=== PATIENT | male | born 1970 | race Caucasian/White ===

== ENCOUNTER 2025-01-21 16:38 | Emergency (ER) | payer BC, SELFPAY ==
[2025-01-21 16:43] VITALS: BP 187/101
--- NOTE | 2025-01-21 17:58 | ED.GENMED ---
History of Present Illness
General
Chief Complaint: DVT/Possible Blood Clot
Source: patient
Exam Limitations: none
Time Seen by Provider: 01/21/25 17:49
History of Present Illness
History of Present Illness:
Patient with 3 to 4 days of left leg swelling and redness. Discussed with his friend who would mention that his friend's father of a blood clot. This prompted ER evaluation. Denies fever chills chest pain shortness of breath. Was also noted
a slight rash to both ankles and feet over the last month. No other unusual rash. Patient does smoke. 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
Past History
Social History
Tobacco: Smoker
Review of Systems
Review of Systems
All Other Systems: Not applicable
Constitutional: Denies fever or chills
Respiratory: Reports no symptoms
Cardiac: Reports no symptoms
Phy Exam
Physical Exam
Physical Exam:
GENERAL: Alert and oriented in no apparent distress. Ambulating the room in no distress
CARDIAC: Regular rate and rhythm
LUNGS: No respiratory distress
NEUROLOGICAL: Alert and oriented , grossly non-focal
SKIN: Warm and dry, slight erythematous hue to the left lower leg from the mid calf down. Area of superficial varicosities anterior over the tibia that appear old. Some mild petechial like appearance to both lower extremities and a stocking-glove
distribution of the ankle and feet. However none elsewhere mild swelling to the left lower leg mostly posterior distal calf near the Achilles. Achilles is nontender
PSYCH: Normal and appropriate interaction.
Course
Orders/Labs/Results
Orders:
Orders
01/21/25 16:50
Legs, left US [US Periph Venous LOWER Ext LT] Urgent
Comment:
Reason For Exam: left calf pain, lower leg redness
01/21/25 18:31
Basic Metabolic Panel Urgent
Complete Blood Count/With Diff Urgent
01/21/25 20:18
Doxycycline [Vibramycin] 100 mg PO NOW STA
Abnormal Lab Results
01/21/25
18:31
MPV 11.5 H fL
(7.4-10.4)
Absolute Monos (auto) 0.8 H 10^3/uL
(0.1-0.6)
Monocytes % 9.4 H %
(1.7-9.3)
01/21/25 18:31
01/21/25 18:31
Vital Signs
Initial and Last Documented VS:
Initial Vital Signs
Temp Pulse Resp BP Pulse Ox
98.5 F 99 18 187/101 97
01/21/25 16:43 01/21/25 16:43 01/21/25 16:43 01/21/25 16:43 01/21/25 16:43
Last Documented Vital Signs
Temp Pulse Resp BP Pulse Ox
98.5 F 86 20 157/91 99
01/21/25 16:43 01/21/25 19:45 01/21/25 19:45 01/21/25 19:45 01/21/25 19:45
MDM/Problems Addressed
Differential Diagnosis Includes:
DVT versus mild cellulitis. Clinically nontoxic. Highly doubt PE. The faint rash he describes as his lower extremities bilaterally are not generalized. Will check a platelet count and CBC.
*Radiology
Radiology exam reviewed: radiology read reviewed (Negative ultrasound)
*Pulse Oximetry
SaO2: 97
Oxygen Mode of Delivery: Room air
Patient hypoxic: no
*Critical Care Note
Total Time (30-74mins, 75-104mins- exclusive of procedures): Not Applicable
Update Note
Update Note:
Labs are stable. Ultrasound negative. Most suspicious at this time for a local cellulitis possibly secondary to a superficial thrombophlebitis inflammation. Ultrasound negative for DVT. Patient without chest pain or shortness of breath. Labs
are stable. Doxycycline and follow-up.
ED Attending Note
-
Portions of this chart may have been created with voice recognition software.� Occasional wrong word or��sound alike� substitutions may have occurred due to the inherent limitations of voice recognition software.
Discharge Plan
Departure
Patient Disposition: Home (Routine Discharge)
Date of Disposition: 01/21/25
Time of Disposition: 20:19
Patient with high blood pressure during this ER visit?: Yes
Discharge Problem:
Cellulitis left lower extremity/calf nixon, Superficial varicosities
Instructions: Varicose Veins (DC), Cellulitis (Skin Infection), Adult (DC), BLOOD PRESSURE
Prescriptions:
New
doxycycline hyclate 100 mg capsule
100 mg PO BID 10 Days Qty: 20 0RF
Referrals:
UNKNOWN - PT DOES,NOT KNOW [Family Provider]
Activity Restrictions/Additional Instructions:
Repeat ultrasound in 7 to 10 days if not improving
Follow-up closely with your primary physician
The prescription was sent to your pharmacy
Interventions
Interventions:
*Risk Screen - Suicide Last Done: 01/21/25 16:43
*General Assessment Last Done: 01/21/25 16:43
*Neglect/Abuse Screening Last Done: 01/21/25 16:43
*ED- Fall Risk Assessment Last Done: 01/21/25 20:19
*ED COVID-19 Vaccine History Last Done: 01/21/25 20:19
*Nursing Disposition Last Done: 01/21/25 20:19
ED- Cardiac Assessment Last Done: 01/21/25 18:45
ED- Pulmonary Assessment Last Done: 01/21/25 18:45
ED-Peripheral Vascular Assessment Last Done: 01/21/25 18:45
ED-Skin Assessment Last Done: 01/21/25 18:45
Discharge Date and Time
Discharge Date/Time: 01/21/25 20:27
Print Language: [id number]
[2025-01-21 18:44] LABS: Hematocrit 45.3 % (39.0-52.0); Hemoglobin 15.5 g/dL (13.0-18.0); Mean Corp Hgb Conc. 34.2 g/dL (33.0-37.0); Mean Corpuscular Volume 87.8 fL (80.0-94.0); Nucleated Red Blood Cells % 0 % (-); Platelet Count 193 10^3/uL (130-400); Red Cell Dist. Width 12.2 % (11.5-14.5)
[2025-01-21 18:59] LABS: Blood Urea Nitrogen 19 mg/dl (9-20); Calcium 9.8 mg/dl (8.4-10.2); Carbon Dioxide 27 mmol/L (22-30); Chloride 107 mmol/L (98-107); Glucose 91 mg/dl (70-99); Potassium 4.6 mmol/L (3.5-5.1); Sodium 139 mmol/L (135-145); eGFR > 60.00
[2025-01-21 19:45] VITALS: BP 157/91
[2025-01-21] MEDS: VIBRAMYCIN 100 MG PO (20:24)
== END 2025-01-21 20:27 | disposition home or self-care (01) ==
LOC: EMR 16:38
PROVIDERS: EMERGENCY PHYSICIAN Emergency Medicine
DX: L03.116 Cellulitis of left lower limb (principal); I83.812 Varicose veins of left lower extremity with pain; M79.662 Pain in left lower leg; R03.0 Elevated blood-pressure reading, without diagnosis of hypertension; F17.200 Nicotine dependence, unspecified, uncomplicated
CPT/HCPCS: 99284; 80048; 85025; 93971

== ENCOUNTER 2025-04-26 23:28 | Emergency (ER) | payer OTHER, SELFPAY ==
[2025-04-26 23:36] VITALS: BP 172/110
[2025-04-27 00:11] VITALS: BP 122/79
[2025-04-27 00:56] LABS: Hematocrit 46.3 % (39.0-52.0); Hemoglobin 15.9 g/dL (13.0-18.0); Mean Corp Hgb Conc. 34.3 g/dL (33.0-37.0); Mean Corpuscular Volume 88.0 fL (80.0-94.0); Nucleated Red Blood Cells % 0 % (-); Platelet Count 185 10^3/uL (130-400); Red Cell Dist. Width 11.8 % (11.5-14.5)
[2025-04-27 01:00] VITALS: BP 137/69
[2025-04-27 01:29] LABS: ALT (SGPT) 34 U/L (0-50); AST (SGOT) 25 U/L (17-59); Albumin 4.1 g/dl (3.5-5.0); Alkaline Phosphatase 62 U/L (38-126); Blood Urea Nitrogen 15 mg/dl (9-20); Calcium 8.4 mg/dl (8.4-10.2); Carbon Dioxide 22 mmol/L (22-30); Chloride 107 mmol/L (98-107); Glucose 93 mg/dl (70-99); Potassium 3.7 mmol/L (3.5-5.1); Sodium 138 mmol/L (135-145); Total Protein 6.4 g/dl (6.3-8.2); eGFR > 60.00
[2025-04-27 01:40] LABS: Troponin I < 0.012 ng/ml
[2025-04-27 02:00] VITALS: BP 127/77
--- NOTE | 2025-04-27 02:04 | ED.GENMED ---
History of Present Illness
General
Chief Complaint: Breathing Problem
Source: patient
Exam Limitations: none
Time Seen by Provider: 04/27/25 00:40
Nursing documentation reviewed up to this point in time: agreed with
History of Present Illness
History of Present Illness:
Note:
CHIEF COMPLAINT(S)
Shortness of breath when lying down.
HISTORY OF PRESENT ILLNESS
The patient is a 54-year-old male experiencing episodes of shortness of breath when lying down. These episodes have occurred over the past couple of weeks, approximately four to five nights in total. The patient describes that the sensation is not
current at the time of the visit. He associates the discomfort with living with his dogs and has expressed uncertainty about anxiety but acknowledges the possibility. The patient has a significant smoking history, having smoked for the last 12
years, but has been off for four years intermittently. Recently, the patient had consumed two packs of cigarettes in the past two weeks, averaging about 10 to 12 cigarettes per day, and expresses a desire to quit smoking.
Two weeks ago, the patient visited an urgent care for congestion, which he still experiences, and was prescribed some medication, described as a vitamin E pill. He reported his lungs feel like they are 'hurting a little bit' and claims to have never
had COVID-19. The patient mentioned feeling anxious about gaining weight, with a 50-pound gain last year. He also referenced his history of blood pressure medication and questions about heart failure testing options.
SOCIAL HISTORY
The patient lives with dogs. 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 He reported current cigarette smoking at 10-12 cigarettes per
day, with an ambition to cease this habit.
MEDICATIONS
Blood pressure medications (specific type not mentioned).
REVIEW OF SYSTEMS
- Respiratory: Shortness of breath when lying down, congestion persisting over two weeks.
- General: No recent fevers, recent weight gain over one year.
- Cardiovascular: Reports leg swelling previously.
- Gastrointestinal: Denies any abdominal pain.
- Psychiatric: Discusses anxiety-like symptoms attributed to weight and smoking issues.
PHYSICAL EXAM
General: Alert, no acute distress.
Skin: Warm, dry.
Head: Normocephalic, atraumatic.
Neck: Supple, trachea midline.
Eye Ears, Nose, Mouth, and Throat: Oral mucosa moist.
Cardiovascular: Normal peripheral perfusion, no edema.
Respiratory: Respirations are non-labored.
Gastrointestinal: Abdomen nondistended.
Back: Normal range of motion, normal alignment.
Musculoskeletal: Normal range of motion, normal strength.
Neurological: Alert and oriented to person, place, time, and situation, no focal neurological deficit observed.
Psychiatric: Cooperative, appropriate mood & affect.
PROBLEM LIST
Acute:
- Shortness of breath when lying down
- Persistent congestion
Chronic:
- Hypertension
- Smoking-related lung issues
PLAN
- Conduct chest X-ray to assess possible congestive heart failure or any other thoracic pathology.
- Review blood work results for further insights into cardiac function.
- Discuss cessation of smoking and consider relevant support or intervention strategies to aid cessation efforts.
DIFFERENTIAL DIAGNOSIS
The Differential Diagnosis includes, in no particular order and is not limited to:
- Congestive heart failure
- Chronic obstructive pulmonary disease (COPD)
- Sleep apnea
- Pulmonary embolism
- Acute bronchitis
- Allergic rhinitis
- Anxiety disorder
- Asthma
- Pneumonia
- Coronary artery disease
EKG
My independent EKG interpretation is:
- Normal sinus rhythm
- Heart rate: 82 bpm
- Normal intervals
- Corrected QT interval: 450 milliseconds
- Non-specific intraventricular conduction delay, noted primarily in lead III
- No old EKG available for comparison
Disposition:
SUMMARY OF ENCOUNTER
The patient is a 54-year-old male who presented with intermittent shortness of breath over the last several weeks, primarily occurring when lying down. At the time of the visit, he reported no active symptoms. The patient is trying to quit smoking,
and we discussed smoking cessation strategies during this visit. Physical examination revealed no distress, normal EKG, and normal lab work including a normal troponin level.
DISPOSITION
Discharge.
ASSESSMENT
Intermittent shortness of breath, likely related to recent smoking and potential underlying issues.
PLAN
- Discharge the patient with a referral for follow-up with cardiology to further evaluate potential cardiac origins of his symptoms.
INDEPENDENT REVIEW OF LABS AND INTERPRETATION OF TESTS
My independent review of the EKG indicates normal sinus rhythm.
My independent review of lab work shows normal results, including a normal troponin level.
PATIENT EDUCATION AND COUNSELING
Discussed smoking cessation strategies with the patient to help support his efforts to quit smoking.
FOLLOW-UP INSTRUCTIONS
The patient is advised to follow up with cardiology for further evaluation and management.
MEDICAL DECISION MAKING
- Number and Complexity of Problems Addressed: Chronic conditions affecting care, including his history of hypertension and recent smoking-related symptoms.
- Data:
Category 1:
- My independent interpretation of EKG shows normal sinus rhythm.
- Normal lab work reviewed including a normal troponin level.
Category 2:
None applicable.
Category 3:
None applicable.
-Risk:
Consideration of Admission/Observation: Escalation of care including admission/observation was considered given the complexity and risk of the patients presenting complaint. However, ultimately, I feel the patient is safe for outpatient management
with close follow-up. Reasoning: Work-up is reassuring, does not reveal any acute life/organ-threatening processes, patients symptoms well controlled upon reevaluation, reexamination is reassuring, vitals are stable, patient agreeable with
discharge, reliable for follow-up.
DIAGNOSIS
- Dyspnea (R06.00)
- Tobacco dependence (F17.200)
Past History
Social History
Tobacco: Smoker
Phy Exam
Physical Exam
Physical Exam:
.
Scores
Heart Failure Risk
Heart Failure Risk Score: Not Applicable
Course
Orders/Labs/Results
Orders:
Orders
04/26/25 23:41
EKG [Electrocardiogram (*1)] Urgent
Reason for Study: Shortness of Breath
EKG- Treatment ONCE
04/27/25 00:33
CMP [Comprehensive Metabolic Panel] Urgent
Complete Blood Count/With Diff Urgent
04/27/25 00:35
Troponin I Urgent
04/27/25 01:00
CR Chest - 2 Views Urgent
Comment:
Reason For Exam: dyspnea
Abnormal Lab Results
04/27/25
00:33
MPV 12.0 H fL
(7.4-10.4)
Absolute Monos (auto) 0.8 H 10^3/uL
(0.1-0.6)
04/27/25 00:33
04/27/25 00:33
Vital Signs
Initial and Last Documented VS:
Initial Vital Signs
Temp Pulse Resp BP Pulse Ox
98.5 F 95 20 172/110 95
04/26/25 23:36 04/26/25 23:36 04/26/25 23:36 04/26/25 23:36 04/26/25 23:36
Last Documented Vital Signs
Temp Pulse Resp BP Pulse Ox
98.5 F 85 18 127/77 96
04/26/25 23:36 04/27/25 02:21 04/27/25 02:21 04/27/25 02:21 04/27/25 02:21
*Radiology
Radiology exam reviewed: all reviewed NAD by ED Provider
*Pulse Oximetry
SaO2: 93
Oxygen Mode of Delivery: Room air
Patient hypoxic: no
*Critical Care Note
Total Time (30-74mins, 75-104mins- exclusive of procedures): Not Applicable
ED Attending Note
-
Portions of this chart may have been created with voice recognition software.� Occasional wrong word or��sound alike� substitutions may have occurred due to the inherent limitations of voice recognition software.
Discharge Plan
Departure
Patient Disposition: Home (Routine Discharge)
Date of Disposition: 04/27/25
Time of Disposition: 02:04
Patient with high blood pressure during this ER visit?: Yes
Condition: Good
Discharge Problem:
Acute dyspnea
Instructions: Shortness of Breath (Dyspnea) (DC), BLOOD PRESSURE
Prescriptions:
No Action
doxycycline hyclate 100 mg capsule
100 mg PO BID 10 Days Qty: 20 0RF
Referrals:
[facility] [Provider Group] - Call in 1-3 days for appt
NONE,* [Family Provider, Internal Medicine]
Interventions
Interventions:
*General Assessment Last Done: 04/27/25 00:20
*Neglect/Abuse Screening Last Done: 04/27/25 02:00
*ED COVID-19 Vaccine History Last Done: 04/27/25 00:20
*ED Influenza Vaccine History Last Done: 04/27/25 00:20
[facility] Fall Risk Assessment Tool Last Done: 04/27/25 02:20
*Risk Screen - Suicide (C-SSRS) Last Done: 04/26/25 23:36
*Nursing Disposition Last Done: 04/27/25 02:21
ED- Cardiac Assessment Last Done: 04/27/25 00:13
ED- Pulmonary Assessment Last Done: 04/27/25 00:18
Discharge Date and Time
Discharge Date/Time: 04/27/25 02:22
Print Language: LITHUANIAN
[2025-04-27 02:21] VITALS: BP 127/77
== END 2025-04-27 02:22 | disposition home or self-care (01) ==
LOC: EMR 23:28
PROVIDERS: EMERGENCY PHYSICIAN Student in an Organized Health Care Education/Training Program
DX: R06.00 Dyspnea, unspecified (principal); F17.210 Nicotine dependence, cigarettes, uncomplicated
CPT/HCPCS: 99284; 71046; 80053; 84484; 85025; 93005